=== PATIENT | male | born 1990 | race Caucasian/White ===

== ENCOUNTER 2017-09-04 20:04 | Emergency (ER) | payer SELFPAY ==
[~2017-09-04] VITALS: Ht 185.4 cm; Wt 81.6 kg
[2017-09-04 20:15] VITALS: BP 116/74
[2017-09-04 23:05] LABS: Urine Bacteria NONE SEEN /hpf (None Seen); Urine Blood Negative /uL (Negative); Urine Specific Gravity 1.016 (1.001-1.035); Urine WBC 2 /hpf (0 - 3)
[2017-09-05] MEDS ORDERED: KETOROLAC TROMETH 60MG/2ML VIAL IM ONE ×2 (00:15)
== END 2017-09-05 00:51 | disposition home or self-care (01) ==
LOC: ER 20:04
DX: J06.9 Acute upper respiratory infection, unspecified (principal); M94.0 Chondrocostal junction syndrome [Tietze]
CPT/HCPCS: 71046; 81001; 96372; 99285; J1885

== ENCOUNTER 2023-10-13 12:36 | Emergency (ER) | payer MEDICAID ==
[~2023-10-13] VITALS: Ht 185.4 cm; Wt 109.5 kg
[2023-10-13] MEDS ORDERED: NAPR-957 PO (15:54)
[2023-10-13] MEDS: methylPREDNISolone SOD SUCC 125 MG/2 ML VL IM ONE (16:00)
[2023-10-13] MEDS: KETOROLAC TROMETH 60MG/2ML VIAL IM ONE (16:00)
[2023-10-13 16:30] VITALS: BP 122/68; PULSE 87; RESP 18; TEMP 98.9; O2SAT 96
== END 2023-10-13 18:28 | disposition home or self-care (01) ==
LOC: ER 12:36
DX: M54.42 Lumbago with sciatica, left side (principal); Z79.899 Other long term (current) drug therapy